=== PATIENT | male | born 2000 | race Caucasian/White ===

== ENCOUNTER 2018-04-14 20:45 | Emergency (ER) | payer OTHER ==
[~2018-04-14] VITALS: Ht 170.2 cm; Wt 72.6 kg
== END 2018-04-14 23:58 | disposition home or self-care (01) ==
LOC: ER 20:45
DX: L55.1 Sunburn of second degree (principal); L56.8 Other specified acute skin changes due to ultraviolet radiation; X32.XXXA Exposure to sunlight, initial encounter; Y93.89 Activity, other specified; Y92.89 Other specified places as the place of occurrence of the external cause; Y99.8 Other external cause status